=== PATIENT | male | born 1970 | race Caucasian/White ===

== ENCOUNTER 2016-09-29 11:12 | Observation (INO) | payer BC, OTHER ==
[~2016-09-29] VITALS: Ht 177.8 cm; Wt 109.0 kg
[~2016-09-29 11:12] MED LIST: CYCL5TAB PO; NAPR500 PO; Z.0.NO CURRENT MEDS
[2016-09-29 11:14] VITALS: BP 120/80; PULSE 68; RESP 20; TEMP 98; O2SAT 96
--- NOTE | 2016-09-29 11:53 | RADRPT ---
EXAM DATE/TIME: 09/29/2016 11:43 [place] COMPARISON: No previous studies available for comparison. INDICATIONS : Chest pain MEDICAL HISTORY : Hypertension. SURGICAL HISTORY : None. ENCOUNTER: Initial ACUITY: 1 day PAIN SCORE: 6/10 LOCATION: Bilateral chest FINDINGS: A single view of the chest demonstrates the lungs to be symmetrically aerated without evidence of mas s, infiltrate or effusion. The cardiomediastinal contours are unremarkable. Osseous structures are intact. CONCLUSION: 1. No acute cardiopulmonary findings. Artem Scherer MD on September 29, 2016 at 11:51 Board Certified Radiologist. This report was verified electronically.
[2016-09-29 13:01] LABS: AUTOMATED NEUTROPHIL # 3.4 TH/MM3 (1.8-7.7); BASOPHIL # 0.1 TH/MM3 (0-0.2); BASOPHIL % 0.9 % (0.0-2.0); EOSINOPHIL # 0.1 TH/MM3 (0-0.4); HEMATOCRIT 43.5 % (39.0-51.0); HEMO FLAGS DIFF FINAL; LYMPH % 34.3 % (9.0-44.0); LYMPHOCYTE # 2.2 TH/MM3 (1.0-4.8); MEAN CELL VOLUME 95.1 FL (80.0-100.0); MEAN CORPUSCULAR HEMOGLOBIN 32.9 PG (27.0-34.0); MEAN CORPUSCULAR HGB CONC 34.6 % (32.0-36.0); MONO % 9.7 % (0.0-8.0); NEUT % 54.1 % (16.0-70.0); PLATELET COUNT 345 TH/MM3 (150-450); RED BLOOD COUNT 4.58 MIL/MM3 (4.50-5.90); WHITE BLOOD COUNT 6.3 TH/MM3 (4.0-11.0)
[2016-09-29 13:17] LABS: ANION GAP 6 MEQ/L (5-15); BICARBONATE 29.7 MEQ/L (21.0-32.0); BLOOD UREA NITROGEN 17 MG/DL (7-18); CHLORIDE 100 MEQ/L (98-107); GLOMERULAR FILTRATION RATE 77 ML/MIN (>89); POTASSIUM 3.9 MEQ/L (3.5-5.1); SODIUM (NA) 136 MEQ/L (136-145)
[2016-09-29 13:19] LABS: CREATINE KINASE 129 U/L (39-308)
[2016-09-29 13:32] LABS: CKMB 1.1 NG/ML (0.5-3.6)
--- NOTE | 2016-09-29 14:10 | PD ---
HPI Chief Complaint: Chest Pain Time Seen by Provider: 14:06 Travel History International Travel<30 days: No Contact w/Intl Traveler<30days: No Traveled to known affect area: No History of Present Illness HPI 46-year-old male complains of chest pain. Patient states that he has intermittent chest pain for the past year. Patient states the pain is substernal chest pressure with radiation to left arm. Patient denies palpitation nausea vomiting diaphoresis. Patient denies any history of CAD. Patient has history hypertension on lisinopril. Patient denies history diabetes. Patient has history of dyslipidemia. Patient is a nonsmoker. Patient has family history of heart disease. Patient states that the chest pain is not associated with exertion. Patient take aspirin 81 g daily. Patient denies any chest pain now. Patient states that on the average had chest pain daily. Patient states that the pain usually lasts about an hour and resolved completely. PFSH Social History Alcohol Use: Yes (SOCIAL) Tobacco Use: No Substance Use: No Allergies-Medications (Allergen,Severity, Reaction): Coded Allergies: Penicillin (Verified Allergy, Mild, RASH/HIVES, 09/29/16) Reported Meds & Prescriptions Reported Meds & Active Scripts Active Naprosyn (Naproxen) 500 Mg Tab 500 Mg PO BID Flexeril (Cyclobenzaprine HCl) 5 Mg Tab 5 Mg PO TID Reported No Current Meds (Miscellaneous Medication) Misc Review of Systems General / Constitutional: No: Fever Eyes: No: Visual changes HENT: No: Headaches Cardiovascular: Positive: Chest Pain or Discomfort Respiratory: No: Shortness of Breath Gastrointestinal: No: Abdominal Pain Genitourinary: No: Dysuria Musculoskeletal: No: Pain Skin: No Rash Neurologic: No: Weakness Psychiatric: No: Depression Endocrine: No: Polydipsia Hematologic/Lymphatic: No: Easy Bruising Physical Exam Narrative GENERAL: Well-nourished, well-developed patient. SKIN: Warm and dry. HEAD: Normocephalic. EYES: No scleral icterus. No injection or drainage. NECK: Supple, trachea midline. No JVD or lymphadenopathy. CARDIOVASCULAR: Regular rate and rhythm without murmurs, gallops, or rubs. RESPIRATORY: Breath sounds equal bilaterally. No accessory muscle use. GASTROINTESTINAL: Abdomen soft, non-tender, nondistended. MUSCULOSKELETAL: No cyanosis, or edema. BACK: Nontender without obvious deformity. No CVA tenderness. Neurologic exam normal. Data Data Last Documented VS Vital Signs Date Time Temp Pulse Resp B/P Pulse Ox O2 Delivery O2 Flow Rate FiO2 09/29/16 11:14 98.0 68 20 120/80 96 Room Air Orders Electrocardiogram (09/29/16 ) Complete Blood Count With Diff (09/29/16 11:25) Basic Metabolic Panel (Bmp) (09/29/16 11:25) Ckmb (Isoenzyme) Profile (09/29/16 11:25) Troponin I (09/29/16 11:25) Chest, Single Ap (09/29/16 11:25) Iv Access Insert/Monitor (09/29/16 11:25) Ecg Monitoring (09/29/16 11:25) Oxygen Administration (09/29/16:25) Oximetry (09/29/16 11:25) CKMB (09/29/16 11:42) CKMB% (09/29/16 11:42) Labs Laboratory Tests Test 09/29/16 11:42 White Blood Count 6.3 TH/MM3 Red Blood Count 4.58 MIL/MM3 Hemoglobin 15.0 GM/DL Hematocrit 43.5 % Mean Corpuscular Volume 95.1 FL Mean Corpuscular Hemoglobin 32.9 PG Mean Corpuscular Hemoglobin 34.6 % Concent Red Cell Distribution Width 13.0 % Platelet Count 345 TH/MM3 Mean Platelet Volume 7.9 FL Neutrophils (%) (Auto) 54.1 % Lymphocytes (%) (Auto) 34.3 % Monocytes (%) (Auto) 9.7 % Eosinophils (%) (Auto) 1.0 % Basophils (%) (Auto) 0.9 % Neutrophils # (Auto) 3.4 TH/MM3 Lymphocytes # (Auto) 2.2 TH/MM3 Monocytes # (Auto) 0.6 TH/MM3 Eosinophils # (Auto) 0.1 TH/MM3 Basophils # (Auto) 0.1 TH/MM3 CBC Comment DIFF FINAL Differential Comment Sodium Level 136 MEQ/L Potassium Level 3.9 MEQ/L Chloride Level 100 MEQ/L Carbon Dioxide Level 29.7 MEQ/L Anion Gap 6 MEQ/L Blood Urea Nitrogen 17 MG/DL Creatinine 1.03 MG/DL Estimat Glomerular Filtration 77 ML/MIN Rate Random Glucose 84 MG/DL Calcium Level 9.3 MG/DL Total Creatine Kinase 129 U/L Creatine Kinase MB 1.1 NG/ML Troponin I LESS THAN 0.02 NG/ML MDM Medical Decision Making Medical Screen Exam Complete: Yes Emergency Medical Condition: Yes Interpretation(s) 1408 p.m. EKG shows sinus bradycardia rate 59. Nonspecific ST-T wave change. Chest x-ray shows no acute consolidation. CBC within normal limit. BMP within normal limit. Cardiac enzymes are normal. Differential Diagnosis Differential diagnosis including musculoskeletal, angina, [place], PE, pneumothorax. Narrative Course 46-year-old male with intermittent chest pain for the past year. Aspirin 162 mg by mouth given. Patient will be admitted to the chest pain center. Diagnosis Primary Impression: Chest pain Qualified Code: R07.9 - Chest pain, unspecified type Admitting Information Admitting Physician Requests: Observation Roshan Dillard MD Sep 29, 2016 14:10
[2016-09-29] MEDS ORDERED: NITROGLYCERIN 0.4 MG SL 25 TABS/BTL SL PRN (14:15)
[2016-09-29] MEDS ORDERED: ONDANSETRON HCL 4 MG/2 ML VIAL IV PRN (14:15)
[2016-09-29] MEDS ORDERED: SODIUM CHLORIDE 0.9% FLUSH 5 ML FLUSH IVF PRN (14:15)
[2016-09-29] MEDS ORDERED: ASPIRIN 81 MG CHEW TAB CHEW ONE (14:15)
[2016-09-29] MEDS ORDERED: ACETAMINOPHEN 500 MG CPLT PO PRN (14:15)
[2016-09-29 14:22] VITALS: O2SAT 98
[2016-09-29] MEDS ORDERED: LISI10TA PO (14:28)
[2016-09-29] MEDS ORDERED: ASPI1TAB69 PO (14:28)
[2016-09-29 14:49] VITALS: BP 134/81; PULSE 59; RESP 16; O2SAT 100
[2016-09-29 15:20] LABS: CREATINE KINASE 120 U/L (39-308)
[2016-09-29 15:33] LABS: CKMB 0.9 NG/ML (0.5-3.6)
--- NOTE | 2016-09-29 16:14 | HHI.HP ---
HPI Primary Care Physician Primary Care Physician located in [place], [place] Chief Complaint Chest pressure and palpitations History of Present Illness 46-year-old male with presents to the emergency room for further evaluation for intermittent chest pain 1 year. Over the past year, he experiences intermittent chest pressure described as quick pressure, severity 4/10, located substernally. Duration last "no more than 2 minutes." No associated symptoms. Breathing does not make chest pressure better or worse. No known precipitating factors. Chest pressure is nonexertional. No relieving factors. This morning he decided to tell his of his intermittent chest pain over the past year "in case something happened to me I wanted her to know about the chest pressure." His encouraged him to immediately come to the ER. Last chest pain episode occurred yesterday lasted approximately 1 minute, nonexertional. Over the past month he has experienced one chest pressure episode. Also reports intermittent palpitations. Last palpitation episode happened 1 week ago. Chest palpitations happen monthly without any known precipitating factors. Chest pressure and palpitations do not happen simultaneously. Review of Systems General: No fatigue,weakness, fever, chills, recent illness, or change in appetite. Reports increase in weight over the past 2 years, relates this to inactivity. HEENT: Slight MERLOS yesterday resolved with 2 ibuprofen tablets. No vision changes , nasal congestion, drainage, or dysphasia CV: No current CP or pressure, otherwise as stated above. No intermittent leg pain or dizziness RESP: No SOB, cough, wheeze GI: No nausea, vomiting, bowel changes, diarrhea, constipation, pain, distention , melena, blood in the stool. No change in appetite. : No dysuria, urgency, frequency, hematuria, or history of kidney stones EXT: No lower leg edema, no paraesthesias MS: No discomfort or change in ROM NEURO: No change in memory, dizziness, difficulty with balance, LOC, motor/ sensory deficits PSYCH: No anxiety, depression. No situational stress. 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 SKIN: No rashes, no concerning lesions Past Family Social History Allergies: Coded Allergies: Penicillin (Verified Allergy, Mild, RASH/HIVES, 09/29/16) Past Medical History Hypertension Past Surgical History Left shoulder arthroscopic repair due to recurrent shoulder dislocations. Reported Medications Active Reported Aspirin 81 Mg Tabdr 81 Mg PO DAILY Lisinopril-Hctz 10-12.5 Mg Tab 1 Tab PO DAILY Active Ordered Medications Current Medications Medications (Trade) Dose Ordered Sig/Velia Route Start Time Stop Time Status Last Admin (Tylenol) 500 mg Q4H PRN PO 09/29/16 14:15 (Zofran Inj) 4 mg Q6H PRN IV 09/29/16 14:15 (Nitrostat Sl) 0.4 mg Q5M PRN SL 09/29/16 14:15 (Aspirin) 325 mg DAILY PO 09/30/16 09:00 (Prinivil) 10 mg DAILY PO 09/30/16 09:00 (Hydrodiuril) 12.5 mg DAILY PO 09/30/16 09:00 Family History Noncontributory for any early onset cardiovascular disease Social History , works as a 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 Lifelong nonsmoker. Denies any alcohol release or drug use. Denies any known diabetes or hyperlipidemia. Had complete blood work including lipid panel completed in fall. Reports sedentary lifestyle over the past 2 years. Past Cardiac Testing He has never had any formal cardiac testing Physical Exam Vital Signs Vital Signs Date Time Temp Pulse Resp B/P Pulse Ox O2 Delivery O2 Flow Rate FiO2 09/29/16 14:49 59 16 134/81 100 Room Air 09/29/16 14:24 63 16 100 Room Air 09/29/16 14:23 100 Room Air 09/29/16 14:22 98 Room Air 09/29/16 11:14 98.0 68 20 120/80 96 Room Air Physical Exam GENERAL: Alert WN, WD, NAD, pleasant, male HEAD: NC, AT EYES: Sclera clear, conjunctiva without injection, pupils equal and round ENT: Mucous membranes pink and moist NECK: Supple, no masses, trachea midline CV: RRR, without murmur, rub, gallop, no JVD, S1-S2 no S3-S4. No carotid bruits. RESP: Clear lungs throughout bilateral, no crackles, wheeze, rhonchi, symmetrical chest rise, nonlabored ABD: Soft, obese, NT, ND, no masses, positive bowel tones, negative Hernandez's sign BACK: No CVAT, no scoliosis EXT: Pulses +24, no dependent edema MS: Normal tone 4 extremities, nontender, no obvious deformities, full range of motion NEURO: CN II through CN XII grossly intact, motor strength 5/5, gait WNL PSYCH: A+O 3, pleasant affect, appropriate speech, appropriate mood and affect , insight and judgment SKIN: Normal turgor, normal texture, no lesions, no rashes, brisk cap refill Laboratory Laboratory Tests Test 09/29/16 09/29/16 11:42 14:41 White Blood Count 6.3 Red Blood Count 4.58 Hemoglobin 15.0 Hematocrit 43.5 Mean Corpuscular Volume 95.1 Mean Corpuscular Hemoglobin 32.9 Mean Corpuscular Hemoglobin 34.6 Concent Red Cell Distribution Width 13.0 Platelet Count 345 Mean Platelet Volume 7.9 Neutrophils (%) (Auto) 54.1 Lymphocytes (%) (Auto) 34.3 Monocytes (%) (Auto) 9.7 Eosinophils (%) (Auto) 1.0 Basophils (%) (Auto) 0.9 Neutrophils # (Auto) 3.4 Lymphocytes # (Auto) 2.2 Monocytes # (Auto) 0.6 Eosinophils # (Auto) 0.1 Basophils # (Auto) 0.1 CBC Comment DIFF FINAL Differential Comment Sodium Level 136 Potassium Level 3.9 Chloride Level 100 Carbon Dioxide Level 29.7 Anion Gap 6 Blood Urea Nitrogen 17 Creatinine 1.03 Estimat Glomerular Filtration 77 Rate Random Glucose 84 Calcium Level 9.3 Total Creatine Kinase 129 120 Creatine Kinase MB 1.1 0.9 Troponin I LESS THAN 0.02 LESS THAN 0.02 Result Diagram: 09/29/16 1142 09/29/16 1142 Imaging Last Impressions Chest X-Ray 09/29/16 1125 Signed Impressions: Service Date/Time: September 11:43 - CONCLUSION: 1. No acute cardiopulmonary findings. Artem Scherer MD Course EKGs 2 EKGs show normal sinus bradycardic rhythm, left axis deviation Assessment and Plan Assessment and Plan #1 Chest painadmitted to the chest pain center. Will complete 3 sets of EKGs, cardiac enzymes, and be monitored overnight. He will be evaluated by Dr. Miguel Coburn in the a.m. Discussed once he is ruled out with serial EKGs and cardiac enzymes and evaluated by portable router operator the next step would be a cardiac stress test. He is agreeable to this plan of care. #2 Hypertensionwe will continue to monitor, reorder lisinopril/HCTZ Code Status Full code Inge Ulloa Sep 29, 2016 16:14 Inge Ulloa Sep 29, 2016 16:14
[2016-09-29 16:33] VITALS: BP 120/73
[2016-09-29 17:03] LABS: APTT (PATIENT) 27.8 SEC (24.3-30.1); INTERNATIONAL NORMALIZED RATIO 1.1 RATIO
[2016-09-29 18:46] LABS: CREATINE KINASE 106 U/L (39-308)
[2016-09-29 18:59] LABS: CKMB 1.2 NG/ML (0.5-3.6)
[2016-09-29 19:21] VITALS: BP 126/69; PULSE 76; RESP 18; TEMP 98.1; O2SAT 96
[2016-09-29 20:17] VITALS: PULSE 70
[2016-09-29] MEDS: SODIUM CHLORIDE 0.9% FLUSH 5 ML FLUSH IVF SCH (21:00)
[2016-09-30 00:04] VITALS: PULSE 62
[2016-09-30 00:43] VITALS: BP 118/67; PULSE 65; RESP 19; TEMP 98; O2SAT 98
[2016-09-30 04:12] VITALS: PULSE 60
[2016-09-30 05:06] VITALS: BP 123/73; PULSE 59; RESP 19; TEMP 98.1; O2SAT 97
[2016-09-30 06:19] VITALS: O2SAT 97
[2016-09-30 07:45] VITALS: BP 113/67; PULSE 60; RESP 18; TEMP 98.7; O2SAT 98
[2016-09-30] MEDS ORDERED: HYDROCHLOROTHIAZIDE 25 MG TAB PO SCH (09:00)
[2016-09-30] MEDS: SODIUM CHLORIDE 0.9% FLUSH 5 ML FLUSH IVF SCH (09:00)
[2016-09-30] MEDS ORDERED: LISINOPRIL 10 MG TAB PO SCH (09:00)
[2016-09-30] MEDS ORDERED: NON-FORMULARY DRUG (Lisinopril-Hctz 1 TAB) PO SCH (09:00)
[2016-09-30] MEDS ORDERED: ASPIRIN 325 MG TAB PO SCH (09:00)
--- NOTE | 2016-09-30 09:57 | HHI.DCPOC ---
Discharge Care Plan Diagnosis: (1) Chest pain (2) Hypertension Goals to Promote Your Health * To prevent worsening of your condition and complications * To maintain your health at the optimal level Directions to Meet Your Goals Take your medications as prescribed Follow your dietary instruction Follow activity as directed Keep your appointments as scheduled Take your immunizations and boosters as scheduled If your symptoms worsen call your PCP, if no PCP go to Urgent Care Center or Emergency Room Smoking is Dangerous to Your Health. Avoid second hand smoke Call the 24-hour hour crisis hotline for domestic abuse at Talat Mendoza Sep 30, 2016 09:57
--- NOTE | 2016-09-30 16:51 | EKG ---
Date Performed: 09/29/2016 Time Performed: 17:45:53 PTAGE: 46 years EKG: SINUS BRADYCARDIA MINIMAL VOLTAGE CRITERIA FOR LVH, CONSIDER NORMAL VARIANT BORDERLINE ECG PREVIOUS TRACING : 09/29/2016 15.09 Since previous tracing, no significant change noted DOCTOR: Miguel Coburn Interpretating Date/Time 09/30/2016 16:49:12
--- NOTE | 2016-09-30 16:51 | EKG ---
Date Performed: 09/29/2016 Time Performed: 15:09:16 PTAGE: 46 years EKG: Sinus rhythm MINIMAL VOLTAGE CRITERIA FOR LVH, CONSIDER NORMAL VARIANT BORDERLINE ECG PREVIOUS TRACING : 09/29/2016 11.31 Since previous tracing, no significant change noted DOCTOR: Miguel Coburn Interpretating Date/Time 09/30/2016 16:49:34
--- NOTE | 2016-09-30 16:52 | EKG ---
Date Performed: 09/29/2016 Time Performed: 11:31:53 PTAGE: 46 years EKG: SINUS BRADYCARDIA BORDERLINE ECG NO PREVIOUS TRACING DOCTOR: Miguel Coburn Interpretating Date/Time 09/30/2016 16:49:53
--- NOTE | 2016-09-30 17:07 | TR ---
Date Performed: 09/30/2016 Time Performed: 08:40:33 DOCTOR: Miguel Coburn DRUG LIST: CLINICAL HISTORY: REASON FOR TEST: REASON FOR ENDING: OBSERVATION: CONCLUSION: PINEDA PROTOCOL. NO XP. TEST STOPPED AFTER EXCEEDING GOAL HR SECONDARY TO SOB AND LEG FATIGUE.Maximum XL=960 % Max HR Mrxdkawl=966.0% Maximum HH=353/78 Total Exercise Time=6:32 COMMENTS: Patient exercised using the Pineda protocol. No electrocardiographic changes were seen to suggest ischemia. Hemodynamic response to exercise was normal. No significant arrhythmia was prese nt.
== END 2016-09-30 11:41 | disposition home or self-care (01) ==
LOC: NEPD 11:12 → NEDH 14:14 → NEPFCDU 17:21
PROVIDERS: ADMIT Internal Medicine Cardiovascular Disease; ATTEND Internal Medicine Cardiovascular Disease
DX: R07.9 Chest pain, unspecified (principal); I10 Essential (primary) hypertension; E78.5 Hyperlipidemia, unspecified; Z82.49 Family history of ischemic heart disease and other diseases of the circulatory system; Z79.82 Long term (current) use of aspirin
CPT/HCPCS: 71010; 80048; 82550; 82552; 84484; 85025; 85610; 85730; 93005; 93017; 99285; G0378

== ENCOUNTER 2017-04-25 12:46 | Emergency (ER) | payer OTHER ==
[~2017-04-25] VITALS: Ht 180.3 cm; Wt 120.0 kg
[~2017-04-25 12:46] MED LIST changes: +ASPI1TAB69 PO; -CYCL5TAB PO; +LISI10TA PO; -NAPR500 PO; -Z.0.NO CURRENT MEDS
[2017-04-25 12:48] VITALS: BP 134/80; PULSE 67; RESP 15; TEMP 98.2; O2SAT 98
[2017-04-25] MEDS ORDERED: IBUP800T23 PO (13:43)
[2017-04-25] MEDS ORDERED: ROBA500T PO (13:43)
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
[2017-04-25] MEDS ORDERED: METHOCARBAMOL 500 MG TAB PO ONE (13:45)
[2017-04-25] MEDS ORDERED: IBUPROFEN 800 MG TAB PO ONE (13:45)
== END 2017-04-25 14:27 | disposition home or self-care (01) ==
LOC: NETRI 12:46 → EDTENT 14:27
DX: S46.811A Strain of other muscles, fascia and tendons at shoulder and upper arm level, right arm, initial encounter (principal); M62.830 Muscle spasm of back; I10 Essential (primary) hypertension; V43.52XA Car driver injured in collision with other type car in traffic accident, initial encounter; Z79.82 Long term (current) use of aspirin; Z79.899 Other long term (current) drug therapy; Z88.0 Allergy status to penicillin
CPT/HCPCS: 99283